=== PATIENT | female | born 1955 | race Caucasian/White ===

== ENCOUNTER → 2017-12-04 | Outpatient (CLI) | payer OTHER ==
[~2017-12-04] MED LIST: ADVAIR 250-501 EACH PO; ALPHA LIPOIC A200 M1 PO; ARMOUR THYROID90 MG PO; B-COMPLEX PO; CENTRUM SILVER1 EAC3 PO; CLONIDINE PF; COENZYME Q10400 MG PO; CYCLOBENZAPRINE10 MG PO; DHEA25 M1 PO; DICLOFENAC DR PO; DILAUDID PF; HYDROCODON-ACE1 EAC9 PO; NEXIUM40 MG PO; PROAIR PO; TRAZODONE HCL100 MG PO; VITAMIN D34000 UNIT PO; [UNRECOGNIZED DRUG - OTHER] PO; [UNRECOGNIZED DRUG - OTHER] TD
== END | disposition home or self-care (01) ==
LOC: RAD 15:44
PROVIDERS: ATTEND Podiatrist Foot & Ankle Surgery
DX: M79.605 Pain in left leg (principal); M79.604 Pain in right leg
CPT/HCPCS: 93970

== ENCOUNTER 2022-10-17 00:55 | Emergency (ER) | payer MEDICARE, OTHER ==
[~2022-10-17] VITALS: Ht 154.9 cm; Wt 76.2 kg
[2022-10-17] MEDS ORDERED: ONDANSETRON HCL INJ 2MG/ML 2ML 2 MG/ML VIAL IV STA (00:59)
[2022-10-17] MEDS ORDERED: CLOPIDOGREL BISULFATE 75 MG TAB PO ONE (01:00)
[2022-10-17] MEDS ORDERED: Morphine 2mg Syringe 2 MG/ML SYR IV ONE ×3 (01:00→02:00)
[2022-10-17] MEDS ORDERED: ASPIRIN 81 MG CHEW TAB PO ONE (01:00)
[2022-10-17] MEDS ORDERED: ONDANSETRON HCL INJ 2MG/ML 2ML 2 MG/ML VIAL ONE (01:01)
[2022-10-17] MEDS ORDERED: Morphine 2mg Syringe 2 MG/ML SYR ONE ×2 (01:01→01:17)
[2022-10-17 01:06] LABS: BASOPHILS % 0.3 % (0.0-1.0); EOSINOPHILS # (AUTO) 0.1 (0.0-0.4); HEMATOCRIT 41.7 % (34.2-44.1); HEMOGLOBIN 13.5 g/dL (12.0-16.0); LYMPHOCYTES # (AUTO) 6.1 (1.0-3.2); LYMPHOCYTES % 55.6 % (18.0-39.1); MEAN CORPUSCULAR HEMOGLOBIN 28.3 pg (28-32); MEAN CORPUSCULAR HGB CONC 32.4 g/dL (31-35); MEAN CORPUSCULAR VOLUME 87.4 fL (81-99); MONOCYTES # (AUTO) 0.6 (0.2-0.8); MONOCYTES % 5.7 % (4.4-11.3); NEUTROPHILS # (AUTO) 4.1 (2.1-6.9); PLATELET COUNT 231 x10e3/uL (140-360); RED BLOOD COUNT 4.77 x10e6/uL (3.6-5.1); RED CELL DISTRIBUTION WIDTH 13.2 % (11.7-14.4)
[2022-10-17 01:17] LABS: INR 1.03; PARTIAL THROMBOPLASTIN TIME 26.9 seconds (23.8-35.5)
[2022-10-17 01:26] LABS: ALANINE AMINOTRANSFERASE 26 IU/L (0-55); ALBUMIN 3.9 g/dL (3.5-5.0); ALKALINE PHOSPHATASE 56 IU/L (40-150); ANION GAP 17.7 mmol/L (8-16); CARBON DIOXIDE 28 mmol/L (22-29); CHLORIDE 99 mmol/L (98-107); CREATINE KINASE 133 IU/L (29-168); CREATININE, SERUM 0.76 mg/dL (0.57-1.11); GLUCOSE 138 mg/dL (74-118); POTASSIUM 3.7 mmol/L (3.5-5.1); SODIUM 141 mmol/L (136-145)
[2022-10-17 01:27] LABS: BLOOD UREA NITROGEN < 2 mg/dL (7-26)
[2022-10-17 01:31] LABS: CALCIUM 9.3 mg/dL (8.4-10.2)
[2022-10-17 02:08] VITALS: BP 129/107
== END 2022-10-17 02:07 | disposition other institution (70) ==
LOC: ER 01:02
DX: R07.9 Chest pain, unspecified (principal); I21.3 ST elevation (STEMI) myocardial infarction of unspecified site; E11.65 Type 2 diabetes mellitus with hyperglycemia; E78.5 Hyperlipidemia, unspecified; M54.9 Dorsalgia, unspecified; G89.29 Other chronic pain; R94.31 Abnormal electrocardiogram [ECG] [EKG]
CPT/HCPCS: 36415; 71045; 80053; 82550; 82553; 84484; 85025; 85610; 85730; 93005; 99285; J2270; J2405

== ENCOUNTER 2024-08-02 12:33 | Emergency (ER) | payer MEDICARE ==
[~2024-08-02] VITALS: Ht 154.9 cm; Wt 81.3 kg
[~2024-08-02 12:33] MED LIST changes: +CEPHALEXIN500 MG PO
[2024-08-02] MEDS ORDERED: PANTOPRAZOLE SO40 MG PO (13:47)
[2024-08-02] MEDS ORDERED: MAGNESIUM OXID400 MG PO (13:47)
[2024-08-02] MEDS ORDERED: CRESTOR40 MG (13:47)
[2024-08-02] MEDS ORDERED: RANOLAZINE ER500 MG (13:47)
[2024-08-02] MEDS ORDERED: LEVOTHYROXINE50 MCG PO (13:47)
[2024-08-02] MEDS ORDERED: PLAVIX75 MG PO (13:47)
[2024-08-02] MEDS ORDERED: DILTIAZEM 24HR120 M1 PO (13:47)
[2024-08-02] MEDS ORDERED: METFORMIN HCL500 M1 PO (13:47)
[2024-08-02] MEDS: ASPIRIN 325 MG TAB PO ONE (13:58)
[2024-08-02 17:23] VITALS: PULSE 71; RESP 17; TEMP 97.9; O2SAT 95
== END 2024-08-02 18:01 | disposition other institution (70) ==
LOC: FSED 12:40
DX: R07.89 Other chest pain (principal); E11.9 Type 2 diabetes mellitus without complications; E78.5 Hyperlipidemia, unspecified; E03.9 Hypothyroidism, unspecified; M54.9 Dorsalgia, unspecified; G89.29 Other chronic pain; R94.31 Abnormal electrocardiogram [ECG] [EKG]; I25.2 Old myocardial infarction; Z85.3 Personal history of malignant neoplasm of breast
CPT/HCPCS: 71046; 80053; 81003; 84484; 85025; 93005; 99282